=== PATIENT | male | born 1960 | race Two or more races ===

== ENCOUNTER 2023-09-05 06:51 | Outpatient (CLI) | payer OTHER ==
[2023-09-05 07:51] LABS: HEMATOCRIT 42.3 % (39.0-48.0); HEMOGLOBIN 14.5 g/dL (13-16.00); MEAN CELL VOLUME 95.2 fL (80.0-100.00); MEAN CORPUSCULAR HEMOGLOBIN 32.6 pg (27.00-32.0); MEAN CORPUSCULAR HGB CONC 34.2 g/dl (32.0-36.0); PLATELET COUNT 258 K/uL (150-450); RED BLOOD COUNT 4.45 M/uL (4.00-6.00); RED CELL DISTRIBUTION WIDTH 13.9 % (11.5-14.5)
[2023-09-05 08:47] LABS: ALBUMIN 3.5 gm/dL (3.4-5.0); BILIRUBIN TOTAL 0.43 mg/dL (0.3-1.2); CALCIUM 8.9 mg/dL (8.5-10.1); CHOL HDL RATIO 3.3 (0-5.0); CREATININE SERUM 0.84 mg/dL (0.70-1.30); GFR 92.89; GLOBULINA 3.5 G/DL (2.4-3.5); POTASSIUM 4.74 mEq/L (3.5-5.1); PROSTATIC SPECIFIC ANTIGEN 1.43 NG/ML (0.010-4.00); TSH 1.72 uIU/mL (0.358-3.74)
[2023-09-05 09:15] LABS: URINE APPEARANCE Clear; URINE BILIRRUBIN Negative (NEGATIVE); URINE BLOOD Small; URINE COLOR Yellow; URINE GLUCOSE Negative (NEGATIVE); URINE LEUKOCYTE Negative; URINE NITRATE Negative; URINE PROTEIN Negative (NEGATIVE); URINE UROBILINOGEN 0.2 E.U./dl
[2023-09-05 09:19] LABS: URINE RBC 40.1 uL (0.0-20.8)
[2023-09-05 09:40] LABS: URINE BACTERIA 2.5 uL (0.0-1933); URINE EPITHELIAL CELLS 0.9 uL (0.0-38.8); URINE WBC 1.3 uL (0.0-23.2)
[2023-09-05 09:56] LABS: ob NEGATIVE (NEGATIVE)
== END 2023-09-05 06:53 | disposition home or self-care (01) ==
LOC: LAB 06:51
PROVIDERS: ATTEND Specialist
DX: M54.50 Low back pain, unspecified (principal); Z12.5 Encounter for screening for malignant neoplasm of prostate; Z12.11 Encounter for screening for malignant neoplasm of colon; Z13.29 Encounter for screening for other suspected endocrine disorder

== ENCOUNTER 2023-09-05 07:23 | Outpatient (CLI) | payer OTHER | END 2023-09-05 07:25 | disposition home or self-care (01) | LOC: RAD 07:23 | PROVIDERS: ATTEND Specialist | DX: M54.50 Low back pain, unspecified (principal); Z12.5 Encounter for screening for malignant neoplasm of prostate; Z12.11 Encounter for screening for malignant neoplasm of colon; Z13.29 Encounter for screening for other suspected endocrine disorder ==

== ENCOUNTER 2023-11-06 07:06 | Outpatient (CLI) | payer OTHER | END 2023-11-06 07:20 | disposition home or self-care (01) | LOC: TOM 07:06 | PROVIDERS: ATTEND Urology | DX: R31.29 Other microscopic hematuria (principal) ==

== ENCOUNTER 2024-04-09 16:43 | Emergency (ER) | payer OTHER ==
[~2024-04-09] VITALS: Ht 182.9 cm; Wt 95.3 kg
[2024-04-09] MEDS ORDERED: FAMOTIDINE/PF 20 MG in 0.9 % SODIUM CHLORIDE 8 ML IV PUSH STA (16:49)
[2024-04-09 16:59] LABS: HEMOGLOBIN 14.9 g/dL (13-16.00); MEAN CELL VOLUME 94.6 fL (80.0-100.00); MEAN CORPUSCULAR HGB CONC 33.9 g/dl (32.0-36.0); PLATELET COUNT 282 K/uL (150-450); RED BLOOD COUNT 4.65 M/uL (4.00-6.00); RED CELL DISTRIBUTION WIDTH 13.9 % (11.5-14.5)
[2024-04-09] MEDS ORDERED: TICAGRELOR 90 MG TABLET PO ONE (17:00)
[2024-04-09] MEDS ORDERED: NITROGLYCERIN 250 ML IV SCH (17:00)
[2024-04-09] MEDS ORDERED: ONDANSETRON HCL 2 MG/ML VIAL IV ONE (17:00)
[2024-04-09] MEDS ORDERED: 0.9 % SODIUM CHLORIDE 1,000 ML IV SCH (17:00)
[2024-04-09] MEDS ORDERED: MORPHINE SULFATE 4 MG/ML VIAL IV ONE (17:00)
[2024-04-09 17:16] LABS: INR 0.96; PARTIAL THROMBOPLASTIN TIME 24.7 SECONDS (22.0-34.0); PROTHROMBIN TIME 10.5 SECONDS (9.0-11.5)
[2024-04-09 17:23] LABS: ALBUMIN 3.7 gm/dL (3.4-5.0); BILIRUBIN TOTAL 0.53 mg/dL (0.3-1.2); CALCIUM 9.9 mg/dL (8.5-10.1); CREATININE SERUM 0.97 mg/dL (0.70-1.30); GFR 78.42; GLOBULINA 3.8 G/DL (2.4-3.5); POTASSIUM 3.65 mEq/L (3.5-5.1); TOTAL PROTEIN 7.5 gm/dL (6.4-8.2)
[2024-04-09] MEDS ORDERED: ENOXAPARIN SODIUM 80 MG/0.8 ML SYRINGE SUBCUTANEO ONE ×2 (17:45)
[2024-04-09] MEDS ORDERED: NITROGLYCERIN IN 5 % DEXTROSE 250 ML IV SCH (17:45)
== END 2024-04-09 18:14 | disposition designated cancer center or children's hospital (05) ==
LOC: ER 16:43
PROVIDERS: General Practice
DX: I21.9 Acute myocardial infarction, unspecified (principal); R07.9 Chest pain, unspecified; Z20.822 Contact with and (suspected) exposure to COVID-19; I10 Essential (primary) hypertension; Z88.6 Allergy status to analgesic agent

== ENCOUNTER 2024-05-28 06:09 | Emergency (ER) | payer OTHER ==
[~2024-05-28] VITALS: Ht 175.3 cm; Wt 90.3 kg
[2024-05-28] MEDS ORDERED: LOSARTAN POTASS25 MG PO (06:17)
[2024-05-28] MEDS ORDERED: ATORVASTATIN CA10 MG PO (06:17)
[2024-05-28] MEDS ORDERED: ST. JOSEPH ASPI81 M2 PO (06:17)
[2024-05-28] MEDS ORDERED: LACTULOSE 20 G/30 ML BLIST.PACK PO STA (06:57)
[2024-05-28] MEDS ORDERED: MINERAL OIL 30 ML BLIST.PACK PO STA (06:57)
[2024-05-28] MEDS ORDERED: MAGNESIUM HYDROXIDE 400 MG/5 ML ML PO STA (06:57)
[2024-05-28] MEDS ORDERED: MAGNESIUM HYDROXIDE 30 ML BLIST.PACK PO ONE (07:24)
[2024-05-28] MEDS ORDERED: MINERAL OIL 30 ML BLIST.PACK ONE (07:24)
[2024-05-28] MEDS ORDERED: LACTULOSE 20 G/30 ML BLIST.PACK ONE (07:24)
[2024-05-28 09:55] LABS: HEMATOCRIT 44.6 % (39.0-48.0); HEMOGLOBIN 14.9 g/dL (13-16.00); MEAN CELL VOLUME 95.7 fL (80.0-100.00); MEAN CORPUSCULAR HEMOGLOBIN 32.1 pg (27.00-32.0); MEAN CORPUSCULAR HGB CONC 33.5 g/dl (32.0-36.0); PLATELET COUNT 287 K/uL (150-450); RED BLOOD COUNT 4.66 M/uL (4.00-6.00); RED CELL DISTRIBUTION WIDTH 13.4 % (11.5-14.5)
[2024-05-28 10:30] LABS: CALCIUM 9.3 mg/dL (8.5-10.1); CREATININE SERUM 0.88 mg/dL (0.70-1.30); GFR 87.75; POTASSIUM 3.96 mEq/L (3.5-5.1)
[2024-05-28 10:34] LABS: PH,URINE 6.5 (5.0-8.0); URINE APPEARANCE Clear; URINE BILIRRUBIN Negative (NEGATIVE); URINE BLOOD Small; URINE COLOR Yellow; URINE GLUCOSE Negative (NEGATIVE); URINE KETONE Trace (NEGATIVE); URINE LEUKOCYTE Negative; URINE NITRATE Negative; URINE PROTEIN Negative (NEGATIVE); URINE UROBILINOGEN 0.2 E.U./dl
[2024-05-28 10:42] LABS: URINE BACTERIA 6.1 uL (0.0-1933); URINE RBC 81.9 uL (0.0-20.8); URINE WBC 3.1 uL (0.0-23.2)
[2024-05-28 10:53] LABS: URINE CAST 0.29 uL (0.0-1.40); URINE EPITHELIAL CELLS 1.1 uL (0.0-38.8)
== END 2024-05-28 11:08 | disposition home or self-care (01) ==
LOC: ER 06:10
PROVIDERS: General Practice
DX: K59.01 Slow transit constipation (principal); I10 Essential (primary) hypertension